=== PATIENT | female | born 1965 | race African-American/Black ===

== ENCOUNTER 2020-02-11 10:27 | Emergency (ER) | payer MEDICAID ==
[~2020-02-11] VITALS: Ht 175.3 cm; Wt 69.0 kg
[2020-02-11] MEDS ORDERED: IBUPROFEN 600MG TABLET PO ONE (11:00)
[2020-02-11] MEDS ORDERED: ACETAMINOPHEN WITH CODEINE 300/30MG TABLET PO ONE (11:15)
[2020-02-11 13:25] VITALS: BP 123/71
== END 2020-02-11 13:25 | disposition home or self-care (01) ==
LOC: ER 10:27
DX: S16.1XXA Strain of muscle, fascia and tendon at neck level, initial encounter (principal); X58.XXXA Exposure to other specified factors, initial encounter; Y93.89 Activity, other specified; Y92.89 Other specified places as the place of occurrence of the external cause; Z59.0 Homelessness
CPT/HCPCS: 72040; 99283

== ENCOUNTER 2020-02-11 21:54 | Emergency (ER) | payer MEDICAID ==
[~2020-02-11] VITALS: Ht 175.3 cm; Wt 81.2 kg
[2020-02-11 22:01] VITALS: BP 122/68
[2020-02-12 00:17] LABS: CLARITY URINE CLEAR (CLEAR); COLOR URINE YELLOW (YELLOW); KETONES URINE NEGATIVE (NEGATIVE); LEUKOCYTE ESTERASE URINE 1+ (NEGATIVE); NITRITE URINE NEGATIVE (NEGATIVE); OCCULT BLOOD URINE NEGATIVE (NEGATIVE); PROTEIN URINE NEGATIVE (NEGATIVE); SPECIFIC GRAVITY URINE 1.032 (1.005-1.030)
== END 2020-02-12 04:08 | disposition home or self-care (01) ==
LOC: ER 21:54
DX: N39.0 Urinary tract infection, site not specified (principal); R20.2 Paresthesia of skin
CPT/HCPCS: 81003; 99283

== ENCOUNTER 2020-03-02 07:33 | Emergency (ER) | payer MEDICAID ==
[~2020-03-02] VITALS: Ht 175.3 cm; Wt 78.2 kg
[2020-03-02 07:38] VITALS: BP 158/91
== END 2020-03-02 14:51 | disposition home or self-care (01) ==
LOC: ER 07:33
DX: F45.22 Body dysmorphic disorder (principal); Z86.73 Personal history of transient ischemic attack (TIA), and cerebral infarction without residual deficits; Z90.710 Acquired absence of both cervix and uterus
CPT/HCPCS: 99281; 99283

== ENCOUNTER 2021-02-22 14:10 | Emergency (ER) | payer MEDICAID ==
[~2021-02-22] VITALS: Ht 175.3 cm; Wt 75.0 kg
[2021-02-22 17:08] VITALS: BP 116/75
== END 2021-02-22 17:09 | disposition home or self-care (01) ==
LOC: ER 14:10
DX: Z13.9 Encounter for screening, unspecified (principal)
CPT/HCPCS: 99281